=== PATIENT | male | born 1930 | race Caucasian/White ===

== ENCOUNTER 2017-12-22 12:55 | Inpatient (IN) | payer MEDICARE, OTHER ==
[2017-12-22] MEDS: SOD CHLORIDE 0.9% 1,000 ML IV ×2 (13:19→15:17)
[2017-12-22 13:25] LABS: ADD MAN DIFF? NO
[2017-12-22 13:27] LABS: BASOPHIL # 0.1 10^3/ul (0.0-0.1); BASOPHILS % 0.8 % (0.0-2.0); EOSINOPHILS # 0.1 10^3/ul (0.0-0.5); EOSINOPHILS % 0.6 % (0.0-7.0); HEMATOCRIT 46.9 % (42.0-52.0); HEMOGLOBIN 15.5 g/dl (14.0-18.0); LYMPHOCYTES # 1.1 10^3/ul (0.8-2.9); LYMPHOCYTES % 11.2 % (15.0-51.0); MEAN CORPUSCULAR HEMOGLOBIN 28.4 pg (29.0-33.0); MEAN CORPUSCULAR VOLUME 85.9 fl (82.0-101.0); MEAN PLATELET VOLUME 10.2 fl (7.4-10.4); MONOCYTE # 0.6 10^3/ul (0.3-0.9); MONOCYTES % 5.6 % (0.0-11.0); NEUTROPHIL # 8.1 10^3/ul (1.6-7.5); NEUTROPHILS % 81.4 % (39.0-77.0); PLATELET COUNT 351 10^3/UL (140-415); RED BLOOD COUNT 5.46 10^6/ul (4.70-6.10); RED CELL DISTRIBUTION WIDTH 13.3 % (11.5-14.5)
[2017-12-22 13:27] LABS: WHITE BLOOD COUNT 9.9 10^3/ul (4.8-10.8)
[2017-12-22 13:45] LABS: ALANINE AMINOTRANSFERASE 25 IU/L (13-69); ALBUMIN 4.5 g/dl (3.3-4.9); ALBUMIN/GLOBULIN RATIO 1.25; ALKALINE PHOSPHATASE 85 IU/L (42-121); ANION GAP 17 (8-16); ASPARTATE AMINO TRANSFERASE 23 IU/L (15-46); BILIRUBIN,INDIRECT 1.2 mg/dl (0-1.1); BILIRUBIN,TOTAL 1.2 mg/dl (0.2-1.3); BLOOD UREA NITROGEN 18 mg/dl (7-20); CALCIUM 8.9 mg/dl (8.4-10.2); CARBON DIOXIDE 22 mmol/L (21-31); CHLORIDE 106 mmol/L (97-110); CREATININE 1.19 mg/dl (0.61-1.24); GLUCOSE 146 mg/dl (70-220); LIPASE 86 U/L (23-300); POTASSIUM 4.1 mmol/L (3.5-5.1); SODIUM 141 mmol/L (135-144); TOTAL PROTEIN 8.1 g/dl (6.1-8.1)
[2017-12-22 13:50] LABS: PROTIME 16.4 Sec (11.9-14.9); PT RATIO 1.3
[2017-12-22 14:01] LABS: TROPONIN-I < 0.012 ng/ml (0.00-0.12)
[2017-12-22 14:12] LABS: ADD UMIC YES; UR ASCORBIC ACID NEGATIVE (NEGATIVE); UR BILIRUBIN (Dip) NEGATIVE (NEGATIVE); UR BLOOD (Dip) 1+ mg/dL (NEGATIVE); UR CLARITY CLEAR (CLEAR); UR COLOR STRAW (YELLOW); UR GLUCOSE (Dip) NEGATIVE (NEGATIVE); UR KETONES (Dip) NEGATIVE (NEGATIVE); UR LEUKOCYTE ESTERASE (Dip) NEGATIVE Leu/ul (NEGATIVE); UR NITRITE (Dip) NEGATIVE (NEGATIVE); UR RBC 0 /HPF (0-5); UR SPECIFIC GRAVITY (Dip) 1.008 (1.003-1.030); UR TOTAL PROTEIN (Dip) NEGATIVE (NEGATIVE); UR UROBILINOGEN (Dip) NEGATIVE (NEGATIVE); UR WBC 1 /HPF (0-5)
[2017-12-22] MEDS: DILTIAZEM 25 MG INJ IV ×2 (14:23→15:51)
[2017-12-22] MEDS: DIGOXIN 0.25 MG TAB PO (16:40)
[2017-12-22] MEDS ORDERED: DILTIAZEM-D5W 125MG/125ML DRIP 125 ML IV (17:30)
[2017-12-22] MEDS: DILTIAZEM 125 MG in DEXTROSE 5% 100 ML IVPB (17:50)
[2017-12-23] MEDS ORDERED: DIPHENHYDRAMINE 25 MG CAP PO (01:30)
[2017-12-23] MEDS ORDERED: LORAZEPAM 0.5 MG TAB PO (01:30)
[2017-12-23] MEDS: APIXABAN 5 MG TABLET PO ×3 (01:38→20:45)
[2017-12-23] MEDS: PANTOPRAZOLE (EC) 40 MG TAB PO (05:43)
[2017-12-23] MEDS: TIOTROPIUM 18 MCG CAPSULE INHA DEV INH (08:47)
[2017-12-23] MEDS: SALMETEROL/FLUTICASONE 250/50 INHA INH ×2 (08:47→21:00)
[2017-12-23] MEDS: FISH OIL 1,000 MG CAP PO ×4 (08:48→20:53)
[2017-12-23] MEDS: FINASTERIDE 5 MG TAB PO (08:49)
[2017-12-23] MEDS: GABAPENTIN 100 MG CAP PO (08:49)
[2017-12-23] MEDS: ASPIRIN (EC) 81 MG TAB PO (08:49)
[2017-12-23] MEDS: FUROSEMIDE 40 MG TAB PO (08:49)
[2017-12-23] MEDS: AMLODIPINE 10 MG TAB PO (08:49)
[2017-12-23] MEDS: METOPROLOL (XL) 50 MG TAB PO (08:50)
[2017-12-23] MEDS: LISINOPRIL 5 MG TAB PO (08:50)
[2017-12-23] MEDS: THEOPHYLLINE (SR) 300 MG CAP PO (08:51)
[2017-12-23 10:07] LABS: DIGOXIN 0.5 ng/ml (1.0-2.0)
[2017-12-23 12:03] LABS: ADD MAN DIFF? NO
[2017-12-23 12:23] LABS: BASOPHIL # 0.1 10^3/ul (0.0-0.1); BASOPHILS % 0.8 % (0.0-2.0); EOSINOPHILS # 0.1 10^3/ul (0.0-0.5); EOSINOPHILS % 1.5 % (0.0-7.0); HEMATOCRIT 41.6 % (42.0-52.0); HEMOGLOBIN 14.1 g/dl (14.0-18.0); LYMPHOCYTES # 1.5 10^3/ul (0.8-2.9); LYMPHOCYTES % 20.2 % (15.0-51.0); MEAN CORPUSCULAR HEMOGLOBIN 29.2 pg (29.0-33.0); MEAN CORPUSCULAR HGB CONC 33.9 g/dl (32.0-37.0); MEAN CORPUSCULAR VOLUME 86.1 fl (82.0-101.0); MEAN PLATELET VOLUME 10.5 fl (7.4-10.4); MONOCYTE # 0.5 10^3/ul (0.3-0.9); MONOCYTES % 7.1 % (0.0-11.0); PLATELET COUNT 319 10^3/UL (140-415); RED BLOOD COUNT 4.83 10^6/ul (4.70-6.10); RED CELL DISTRIBUTION WIDTH 13.5 % (11.5-14.5)
[2017-12-23 12:23] LABS: WHITE BLOOD COUNT 7.2 10^3/ul (4.8-10.8)
[2017-12-23 12:29] LABS: DIGOXIN 0.5 ng/ml (1.0-2.0)
[2017-12-23 12:29] LABS: ALANINE AMINOTRANSFERASE 27 IU/L (13-69); ALBUMIN/GLOBULIN RATIO 1.21; ALKALINE PHOSPHATASE 66 IU/L (42-121); ANION GAP 15 (8-16); ASPARTATE AMINO TRANSFERASE 24 IU/L (15-46); BILIRUBIN,INDIRECT 1.3 mg/dl (0-1.1); BILIRUBIN,TOTAL 1.3 mg/dl (0.2-1.3); BLOOD UREA NITROGEN 15 mg/dl (7-20); CALCIUM 8.6 mg/dl (8.4-10.2); CARBON DIOXIDE 22 mmol/L (21-31); CHLORIDE 106 mmol/L (97-110); CREATININE 1.19 mg/dl (0.61-1.24); GLUCOSE 126 mg/dl (70-220); POTASSIUM 3.7 mmol/L (3.5-5.1); SODIUM 139 mmol/L (135-144); TOTAL PROTEIN 7.3 g/dl (6.1-8.1)
[2017-12-23 12:30] LABS: MAGNESIUM 1.9 mg/dl (1.7-2.5)
[2017-12-23 12:37] LABS: B-TYPE NATRIURETIC PEPTIDE 2250 PG/ML (0-450)
[2017-12-23 12:50] LABS: TROPONIN-I 0.246 ng/ml (0.00-0.12)
[2017-12-23 13:26] LABS: D-DIMER 568.33 ng/ml (<460)
[2017-12-23] MEDS: AMIODARONE 200 MG TAB PO ×2 (16:44→20:45)
[2017-12-23] MEDS: ATORVASTATIN 20 MG TAB PO (20:44)
[2017-12-23] MEDS: TAMSULOSIN (SR) 0.4 MG CAP PO (20:44)
[2017-12-23] MEDS: EZETIMIBE 10 MG TAB PO (20:44)
[2017-12-24] MEDS: PANTOPRAZOLE (EC) 40 MG TAB PO (05:22)
[2017-12-24] MEDS: AMIODARONE 200 MG TAB PO ×3 (09:00→20:57)
[2017-12-24] MEDS: METOPROLOL (XL) 50 MG TAB PO ×2 (09:00→09:28)
[2017-12-24] MEDS: SALMETEROL/FLUTICASONE 250/50 INHA INH ×2 (09:07→20:55)
[2017-12-24] MEDS: TIOTROPIUM 18 MCG CAPSULE INHA DEV INH (09:08)
[2017-12-24] MEDS: APIXABAN 5 MG TABLET PO ×2 (09:10→20:57)
[2017-12-24] MEDS: FISH OIL 1,000 MG CAP PO ×4 (09:10→20:56)
[2017-12-24] MEDS: FINASTERIDE 5 MG TAB PO (09:11)
[2017-12-24] MEDS: AMLODIPINE 10 MG TAB PO (09:11)
[2017-12-24] MEDS: FUROSEMIDE 40 MG TAB PO (09:11)
[2017-12-24] MEDS: GABAPENTIN 100 MG CAP PO (09:11)
[2017-12-24] MEDS: LISINOPRIL 5 MG TAB PO (09:12)
[2017-12-24] MEDS: THEOPHYLLINE (SR) 300 MG CAP PO (09:12)
[2017-12-24] MEDS: EZETIMIBE 10 MG TAB PO (20:56)
[2017-12-24] MEDS: TAMSULOSIN (SR) 0.4 MG CAP PO (20:56)
[2017-12-24] MEDS: ATORVASTATIN 20 MG TAB PO (20:57)
[2017-12-24] MEDS: ZOLPIDEM 5 MG TAB PO (23:52)
[2017-12-25] MEDS: PANTOPRAZOLE (EC) 40 MG TAB PO (05:21)
[2017-12-25] MEDS: SALMETEROL/FLUTICASONE 250/50 INHA INH (08:47)
[2017-12-25] MEDS: TIOTROPIUM 18 MCG CAPSULE INHA DEV INH (08:47)
[2017-12-25] MEDS: AMIODARONE 200 MG TAB PO (08:48)
[2017-12-25] MEDS: GABAPENTIN 100 MG CAP PO (08:48)
[2017-12-25] MEDS: AMLODIPINE 10 MG TAB PO (08:48)
[2017-12-25] MEDS: FINASTERIDE 5 MG TAB PO (08:48)
[2017-12-25] MEDS: FISH OIL 1,000 MG CAP PO ×2 (08:48→13:00)
[2017-12-25] MEDS: FUROSEMIDE 40 MG TAB PO (08:49)
[2017-12-25] MEDS: APIXABAN 5 MG TABLET PO (08:49)
[2017-12-25] MEDS: METOPROLOL (XL) 50 MG TAB PO (08:49)
[2017-12-25] MEDS: LISINOPRIL 5 MG TAB PO (08:49)
[2017-12-25] MEDS: THEOPHYLLINE (SR) 300 MG CAP PO (08:49)
== END 2017-12-25 14:12 | disposition home or self-care (01) | DRG 281 ==
LOC: MS4 17:28 → E/R 12:55
DX: I48.0 Paroxysmal atrial fibrillation (principal); I21.A1 Myocardial infarction type 2; I50.32 Chronic diastolic (congestive) heart failure; N17.9 Acute kidney failure, unspecified; I13.0 Hypertensive heart and chronic kidney disease with heart failure and stage 1 through stage 4 chronic kidney disease, or unspecified chronic kidney disease; G30.9 Alzheimer's disease, unspecified; F02.80 Dementia in other diseases classified elsewhere, unspecified severity, without behavioral disturbance, psychotic disturbance, mood disturbance, and anxiety; J44.9 Chronic obstructive pulmonary disease, unspecified; I25.10 Atherosclerotic heart disease of native coronary artery without angina pectoris; N40.0 Benign prostatic hyperplasia without lower urinary tract symptoms; Z91.14 Patient's other noncompliance with medication regimen; E78.5 Hyperlipidemia, unspecified; G47.33 Obstructive sleep apnea (adult) (pediatric); N18.9 Chronic kidney disease, unspecified; E83.42 Hypomagnesemia; Z91.11 Patient's noncompliance with dietary regimen
CPT/HCPCS: 36415; 71045; 76700; 80053; 80162; 81001; 83690; 83735; 83880; 84484; 85025; 85378; 85610; 87086; 93005; 93306; 96374; 96375; 96376; 99291-25

== ENCOUNTER 2019-07-01 23:33 | Inpatient (IN) | payer MEDICARE, OTHER ==
[2019-07-01] MEDS: DILTIAZEM 25 MG INJ IV (23:52)
[2019-07-02] LABS: ADD MAN DIFF? NO
[2019-07-02 00:03] LABS: WHITE BLOOD COUNT 8.4 10^3/ul (4.8-10.8)
[2019-07-02 00:03] LABS: BASOPHIL # 0.1 10^3/ul (0.0-0.1); BASOPHILS % 0.6 % (0.0-2.0); EOSINOPHILS # 0.2 10^3/ul (0.0-0.5); EOSINOPHILS % 1.8 % (0.0-7.0); HEMOGLOBIN 14.2 g/dl (14.0-18.0); LYMPHOCYTES # 1.7 10^3/ul (0.8-2.9); LYMPHOCYTES % 19.9 % (15.0-51.0); MEAN CORPUSCULAR HEMOGLOBIN 28.5 pg (29.0-33.0); MEAN CORPUSCULAR VOLUME 86.3 fl (82.0-101.0); MEAN PLATELET VOLUME 10.2 fl (7.4-10.4); MONOCYTE # 0.8 10^3/ul (0.3-0.9); MONOCYTES % 9.2 % (0.0-11.0); NEUTROPHIL # 5.7 10^3/ul (1.6-7.5); NEUTROPHILS % 68.1 % (39.0-77.0); PLATELET COUNT 298 10^3/UL (140-415); RED BLOOD COUNT 4.98 10^6/ul (4.70-6.10); RED CELL DISTRIBUTION WIDTH 13.2 % (11.5-14.5)
[2019-07-02 00:10] LABS: ANION GAP 10 (5-13); BLOOD UREA NITROGEN 17 mg/dl (7-20); CALCIUM 9.1 mg/dl (8.4-10.2); CARBON DIOXIDE 22 mmol/L (21-31); CHLORIDE 110 mmol/L (97-110); GLUCOSE 152 mg/dl (70-220); POTASSIUM 4.2 mmol/L (3.5-5.1); SODIUM 142 mmol/L (135-144)
[2019-07-02] MEDS: DILTIAZEM-D5W 125MG/125ML DRIP 125 ML IV (00:12)
[2019-07-02 00:23] LABS: B-TYPE NATRIURETIC PEPTIDE 1500 PG/ML (0-450); TROPONIN-I < 0.012 ng/ml (0.000-0.120)
[2019-07-02 00:26] LABS: INR 1.31; PARTIAL THROMBOPLASTIN TIME 39.7 Sec (23.0-35.0); PROTIME 16.4 Sec (11.9-14.9); PT RATIO 1.3
[2019-07-02] MEDS: IOHEXOL 300MG/ML 150 ML BTL (01:14)
[2019-07-02] MEDS: SOD CHLORIDE 0.9% 100 ML (01:14)
[2019-07-02] MEDS ORDERED: ONDANSETRON 4 MG INJ IV (02:30)
[2019-07-02 06:26] LABS: CREATINE KINASE 57 IU/L (23-200)
[2019-07-02 06:28] LABS: CK INDEX 2.8; CK-MB 1.62 ng/ml (0.0-2.4); TROPONIN-I 0.081 ng/ml (0.000-0.120)
[2019-07-02 11:32] LABS: CREATINE KINASE 58 IU/L (23-200)
[2019-07-02 11:45] LABS: CK INDEX 2.8; CK-MB 1.65 ng/ml (0.0-2.4); TROPONIN-I 0.057 ng/ml (0.000-0.120)
[2019-07-02] MEDS ORDERED: DIPHENHYDRAMINE 25 MG CAP PO (12:00)
[2019-07-02] MEDS ORDERED: ASPIRIN (EC) 81 MG TAB PO (12:00)
[2019-07-02] MEDS ORDERED: AMITRIPTYLINE 10 MG TAB PO (12:00)
[2019-07-02] MEDS ORDERED: METOPROLOL (XL) 50 MG TAB PO (12:00)
[2019-07-02] MEDS ORDERED: ZOLPIDEM 5 MG TAB PO (12:00)
[2019-07-02] MEDS ORDERED: AMLODIPINE 10 MG TAB PO (12:00)
[2019-07-02] MEDS: APIXABAN 5 MG TABLET PO ×2 (14:49→22:52)
[2019-07-02] MEDS: LISINOPRIL 5 MG TAB PO (14:50)
[2019-07-02] MEDS: CYANOCOBALAMIN 500 MCG TAB PO (14:50)
[2019-07-02] MEDS: GABAPENTIN 100 MG CAP PO (14:51)
[2019-07-02] MEDS: FINASTERIDE 5 MG TAB PO (14:51)
[2019-07-02] MEDS: AMIODARONE 200 MG TAB PO ×2 (14:51→22:52)
[2019-07-02] MEDS: AMLODIPINE 5 MG TAB PO (16:24)
[2019-07-02] MEDS ORDERED: NON-FORMULARY/PATIENT OWN MED (Simvastatin* (Zocor*) 40 MG) PO (21:00)
[2019-07-02] MEDS: ATORVASTATIN 20 MG TAB PO (21:37)
[2019-07-02] MEDS: TAMSULOSIN (SR) 0.4 MG CAP PO (21:37)
[2019-07-02] MEDS: ARFORMOTEROL TARTRATE 15MCG/2 ML AMP HHN (21:57)
[2019-07-02] MEDS: BUDESONIDE (NEB) 0.5MG/2ML AMP HHN (21:57)
[2019-07-02] MEDS: LORAZEPAM 0.5 MG TAB PO (23:26)
[2019-07-03] MEDS: LISINOPRIL 5 MG TAB PO (08:19)
[2019-07-03] MEDS: FISH OIL 1,000 MG CAP PO (08:19)
[2019-07-03] MEDS: AMIODARONE 200 MG TAB PO (08:19)
[2019-07-03] MEDS: GABAPENTIN 100 MG CAP PO (08:19)
[2019-07-03] MEDS: FINASTERIDE 5 MG TAB PO (08:19)
[2019-07-03] MEDS: APIXABAN 5 MG TABLET PO (08:20)
[2019-07-03] MEDS: AMLODIPINE 5 MG TAB PO (08:20)
[2019-07-03] MEDS: CYANOCOBALAMIN 500 MCG TAB PO (08:20)
[2019-07-03] MEDS: ARFORMOTEROL TARTRATE 15MCG/2 ML AMP HHN (10:27)
[2019-07-03] MEDS: BUDESONIDE (NEB) 0.5MG/2ML AMP HHN (10:27)
== END 2019-07-03 12:45 | disposition home or self-care (01) | DRG 309 ==
LOC: 6WM 07-02 15:11 → E/R 23:33 → 6WM 07-02 02:01
DX: I48.91 Unspecified atrial fibrillation (principal); I50.32 Chronic diastolic (congestive) heart failure; I13.0 Hypertensive heart and chronic kidney disease with heart failure and stage 1 through stage 4 chronic kidney disease, or unspecified chronic kidney disease; I25.119 Atherosclerotic heart disease of native coronary artery with unspecified angina pectoris; Z79.02 Long term (current) use of antithrombotics/antiplatelets; K21.9 Gastro-esophageal reflux disease without esophagitis; N18.2 Chronic kidney disease, stage 2 (mild)
CPT/HCPCS: 36415; 71045; 71275; 80048; 82550; 82553; 83880; 84484; 85025; 85610; 85730; 93005; 94640; 94664; 96374; 96375; 99285-25